=== PATIENT | female | born 1985 | race Two or more races ===

== ENCOUNTER 2018-09-27 18:53 | Emergency (ER) | payer OTHER ==
[2018-09-27] MEDS ORDERED: valACYclovir 1,000 MG Tab PO STA (20:29)
--- NOTE | 2018-09-27 20:34 | EDM.PDOC ---
ED HPI GENERAL MEDICAL PROBLEM - General Chief Complaint: Skin Complaint Stated Complaint: RASH ON LOW BACK AND FRONT Time Seen by Provider: 09/27/18 20:23 Source of Information: Reports: Patient, RN Notes Reviewed History Limitations: Reports: No Limitations - History of Present Illness INITIAL COMMENTS - FREE TEXT/NARRATIVE: 33-year-old female presents emergency department today complaint of rash she developed a rash on the left side of her body over the last couple days if small vesicles it is quite painful - Related Data Allergies Allergy/AdvReac Type Severity Reaction Status Date / Time cephalexin [From Keflex] Allergy Rash Verified 09/27/18 19:45 Home Meds: Home Meds Prenatl Vit6/Iron/FA/B12/Ca/D3 [Mteryti Combo Pack] 1 tab PO DAILY 09/27/18 [ History] Past Medical History [employer] History: Reports: - Past Surgical History Female Surgical History: Reports: Section Social & Family History - Tobacco Use Smoking Status *Q: Never Smoker - Caffeine Use Caffeine Use: Reports: Soda - Recreational Drug Use Recreational Drug Use: No ED ROS GENERAL - Review of Systems Review Of Systems: See Below Skin: Reports: Pruritis, Rash ED EXAM, SKIN/RASH Exam: See Below Exam Limited By: No Limitations General Appearance: Alert, WD/WN, No Apparent Distress Skin: Warm, Zoster-Like Rash (Dermatome L2 region) Course - Vital Signs Last Recorded V/S: Last Vital Signs Temp 98.3 F 09/27/18 19:45 Pulse 68 09/27/18 19:45 Resp 15 09/27/18 19:45 BP 128/72 09/27/18 19:45 Pulse Ox 97 09/27/18 19:45 - Orders/Labs/Meds Orders: Active Orders 24 hr Category Date Time Status valACYclovir [Valtrex] Med 09/27/18 20:29 Stat 1,000 mg PO NOW STA Medication Orders Valacyclovir HCl (Valtrex) 1,000 mg PO NOW STA Stop: 09/27/18 20:30 Meds: Medications Generic Name Dose Route Start Last Admin Trade Name Freq PRN Reason Stop Dose Admin Valacyclovir HCl 1,000 mg 09/27/18 20:29 Valtrex PO 09/27/18 20:30 NOW STA Departure - Departure Time of Disposition: 20:33 Disposition: Home, Self-Care 01 Condition: Fair Clinical Impression: Shingles Qualifiers: Herpes zoster complications: without complications Qualified Code(s): B02.9 - Zoster without complications - Discharge Information Referrals: PCP,None [Primary Care Provider] - Additional Instructions: Start antivirals tomorrow Valtrex 1 tablet 3 times a day for 7 days use the hydrocodone as needed for pain control follow-up care 3-5 days if no improvement , call return to the emergency department worsening symptoms - My Orders Last 24 Hours: My Active Orders 09/27/18 20:29 valACYclovir [Valtrex] 1,000 mg PO NOW STA - Assessment/Plan Last 24 Hours: My Active Orders 09/27/18 20:29 valACYclovir [Valtrex] 1,000 mg PO NOW STA Plan: Assessment Acuity = acute Site and laterality = shingles Etiology = varicella-zoster exacerbation Manifestations = [painful rash Location of injury = Home Lab values = none Plan [Hydrocodone 5/325 one tab by mouth 3 times a day when necessary #10 provided for pain control, started on Valtrex salome's prescription for written for Valtrex 1 g 1 tablet 7 days follow-up primary care 3-5 days if no improvement This note was dictated using [employer] voice recognition software please call with any questions on syntax or grammar.
== END 2018-09-27 20:52 | disposition home or self-care (01) ==
LOC: JP.ED 18:53
DX: B02.9 Zoster without complications (principal); Z88.1 Allergy status to other antibiotic agents
CPT/HCPCS: 99282